=== PATIENT | female | born 1950 | race Caucasian/White ===

== ENCOUNTER 2023-10-18 12:30 | Outpatient (REF) | payer MEDICARE, SELFPAY | END 2023-10-18 12:31 | disposition home or self-care (01) | LOC: HO.SH 12:30 | PROVIDERS: Visit Provider Internal Medicine | DX: Z01.118 Encounter for examination of ears and hearing with other abnormal findings (principal); H90.3 Sensorineural hearing loss, bilateral | CPT/HCPCS: 92557; 92567 ==

== ENCOUNTER 2023-11-27 14:32 | Outpatient (REF) | payer SELFPAY ==
--- NOTE | 2023-11-27 15:28 | MHC.AU.HA1 ---
Hearing Aid Evaluation Date of Visit: 11/27/23 Historical Information: Description of Hearing: Moderate to severe sensorineural hearing loss, bilaterally. Current personal amplification information, if applicable: None. Summary: Dawn is here with her to discuss hearing aids. Recent evaluation on 10/18/23. They report no hearing aid benefit available. Reviewed options and pricing. Recommended RITE with custom slim tip with canal lock to help with retention due to small ear canals as previously noted. Dawn is interested in rechargeable hearing aids. They report going out occasionally, infrequent gatherings with large family, mostly in quieter environments. Considering quiet or active performance level. Dawn has an iPhone. They wanted to discuss options further and be in touch. Impressions not taken today. Consult fee not collected today. Plan of Care: Return to complete selection process and take impressions when ready. Action Taken/Action Needed: Primary Diagnosis: H90.3 Bilateral Sensorineural Hearing Loss Signature: Provider: Ivana Busby, CCC-A
== END 2023-11-27 14:33 | disposition home or self-care (01) ==
LOC: HO.HAP 14:32
PROVIDERS: Visit Provider Internal Medicine
DX: Z13.89 Encounter for screening for other disorder (principal)